=== PATIENT | male | born 1965 | race Caucasian/White ===

== ENCOUNTER 2020-09-23 22:37 | Emergency (ER) | payer MEDICAID ==
[2020-09-23 22:44] VITALS: TEMP 97.6
--- NOTE | 2020-09-23 22:47 | ED ---
Recheck HPI - General Chief Complaint: Recheck/Abnormal Lab/Rx Stated Complaint: High BP Time Seen by Provider: 09/23/20 22:47 Source: patient, RN notes reviewed, old records reviewed Mode of arrival: ambulatory Limitations: no limitations - History of Present Illness Initial Comments: This is a 55-year-old male to the ER for evaluation patient presents today for evaluation regards to elevated blood pressure. Patient has no significant known history of elevated blood pressure is concerned over blood pressure being elevated. Patient's taking it a few times at work and once on outpatient office visit was known to have elevated blood pressure patient does admit to increased stress and anxiety in his life otherwise denies current complaint Headache to this. Complaint: other (Elevated blood pressure) -: days(s) Returns Today for: Called Because of Abnormal Lab/Test (Patient continues to check his blood pressure as an outpatient with continued elevation) Symptoms Since Prior Visit: no new symptoms Context: planned re-check Associated Symptoms: none Treatments Prior to Arrival: other (none) - Related Data Previous Rx's Medication Instructions Recorded Lisinopril [Zestril] 10 mg PO DAILY #30 tab 09/23/20 Allergies Allergy/AdvReac Type Severity Reaction Status Date / Time No Known Allergies Allergy Verified 09/23/20 22:45 Review of Systems ROS Statement: Those systems with pertinent positive or pertinent negative responses have been documented in the HPI. ROS Other: All systems not noted in ROS Statement are negative. Past Medical History Past Medical History: Asthma, Deep Vein Thrombosis (DVT) Additional Past Medical History / Comment(s): hemachromotosis, kidney stones History of Any Multi-Drug Resistant Organisms: None Reported Past Surgical History: Cholecystectomy, Orthopedic Surgery Additional Past Surgical History / Comment(s): ACL reconstruction Past Psychological History: No Psychological Hx Reported, Depression Smoking Status: Light tobacco smoker Past Alcohol Use History: Occasional Past Drug Use History: None Reported General Exam Limitations: no limitations General appearance: alert, in no apparent distress Head exam: Present: atraumatic, normocephalic, normal inspection Eye exam: Present: normal appearance, PERRL, EOMI. Absent: scleral icterus, conjunctival injection, periorbital swelling ENT exam: Present: normal exam, mucous membranes moist Neck exam: Present: normal inspection. Absent: tenderness, meningismus, lymphadenopathy Respiratory exam: Present: normal lung sounds bilaterally. Absent: respiratory distress, wheezes, rales, rhonchi, stridor Cardiovascular Exam: Present: regular rate, normal rhythm, normal heart sounds. Absent: systolic murmur, diastolic murmur, rubs, gallop, clicks GI/Abdominal exam: Present: soft, normal bowel sounds. Absent: distended, tenderness, guarding, rebound, rigid Extremities exam: Present: normal inspection, full ROM, normal capillary refill. Absent: tenderness, pedal edema, joint swelling, calf tenderness Back exam: Present: normal inspection Neurological exam: Present: alert, oriented X3, CN II-XII intact Psychiatric exam: Present: normal affect, normal mood Skin exam: Present: warm, dry, intact, normal color. Absent: rash Course Vital Signs 09/23/20 09/23/20 09/23/20 22:38 22:44 23:44 Temperature 97.6 F Pulse Rate 86 74 77 Respiratory 16 18 18 Rate Blood Pressure 152/99 155/104 O2 Sat by Pulse 95 95 Oximetry 09/24/20 00:05 Temperature Pulse Rate 77 Respiratory 18 Rate Blood Pressure 152/97 O2 Sat by Pulse 95 Oximetry - Reevaluation(s) Reevaluation #1: Medical record is reviewed Patient no distress here in the ER is improved Spoke with patient regarding findings, questions are answered Blood pressure is improved Medical Decision Making - Medical Decision Making 55 male to the ER for evaluation of blood pressure issues. Patient is well- controlled blood pressure now here in the ER and is okay for discharge home with no significant complaint - Lab Data Result diagrams: 09/23/20 23:03 09/23/20 23:03 Lab Results 09/23/20 09/23/20 09/23/20 Range/Units 23:03 23:03 23:03 WBC 9.3 (3.8-10.6) k/uL RBC 5.06 (4.30-5.90) m/uL Hgb 16.5 (13.0-17.5) gm/dL Hct 45.9 (39.0-53.0) % MCV 90.7 (80.0-100.0) fL MCH 32.6 (25.0-35.0) pg MCHC 35.9 (31.0-37.0) g/dL RDW 11.8 (11.5-15.5) % Plt Count 195 (150-450) k/uL MPV 7.0 Neutrophils % 52 % Lymphocytes % 36 % Monocytes % 5 % Eosinophils % 5 % Basophils % 1 % Neutrophils # 4.8 (1.3-7.7) k/uL Lymphocytes # 3.3 (1.0-4.8) k/uL Monocytes # 0.5 (0-1.0) k/uL Eosinophils # 0.5 (0-0.7) k/uL Basophils # 0.1 (0-0.2) k/uL Sodium 139 (137-145) mmol/L Potassium 4.2 (3.5-5.1) mmol/L Chloride 104 (98-107) mmol/L Carbon Dioxide 24 (22-30) mmol/L Anion Gap 11 mmol/L BUN 13 (9-20) mg/dL Creatinine 0.78 (0.66-1.25) mg/dL Est GFR (CKD-EPI)AfAm >90 (>60 ml/min/1.73 sqM) Est GFR (CKD-EPI)NonAf >90 (>60 ml/min/1.73 sqM) Glucose 89 (74-99) mg/dL Calcium 10.2 (8.4-10.2) mg/dL Phosphorus 4.7 H (2.5-4.5) mg/dL Total Bilirubin 0.8 (0.2-1.3) mg/dL AST 47 (17-59) U/L ALT 69 H (4-49) U/L Alkaline Phosphatase 66 (38-126) U/L Creatine Kinase 195 H (55-170) U/L CK-MB (CK-2) 3.2 H (0.0-2.4) ng/mL Troponin I <0.012 (0.000-0.034) ng/mL NT-Pro-B Natriuret Pep pg/mL Total Protein 7.5 (6.3-8.2) g/dL Albumin 4.6 (3.5-5.0) g/dL TSH 4.530 (0.465-4.680) mIU/L 09/23/20 Range/Units 23:04 WBC (3.8-10.6) k/uL RBC (4.30-5.90) m/uL Hgb (13.0-17.5) gm/dL Hct (39.0-53.0) % MCV (80.0-100.0) fL MCH (25.0-35.0) pg MCHC (31.0-37.0) g/dL RDW (11.5-15.5) % Plt Count (150-450) k/uL MPV Neutrophils % % Lymphocytes % % Monocytes % % Eosinophils % % Basophils % % Neutrophils # (1.3-7.7) k/uL Lymphocytes # (1.0-4.8) k/uL Monocytes # (0-1.0) k/uL Eosinophils # (0-0.7) k/uL Basophils # (0-0.2) k/uL Sodium (137-145) mmol/L Potassium (3.5-5.1) mmol/L Chloride (98-107) mmol/L Carbon Dioxide (22-30) mmol/L Anion Gap mmol/L BUN (9-20) mg/dL Creatinine (0.66-1.25) mg/dL Est GFR (CKD-EPI)AfAm (>60 ml/min/1.73 sqM) Est GFR (CKD-EPI)NonAf (>60 ml/min/1.73 sqM) Glucose (74-99) mg/dL Calcium (8.4-10.2) mg/dL Phosphorus (2.5-4.5) mg/dL Total Bilirubin (0.2-1.3) mg/dL AST (17-59) U/L ALT (4-49) U/L Alkaline Phosphatase (38-126) U/L Creatine Kinase (55-170) U/L CK-MB (CK-2) (0.0-2.4) ng/mL Troponin I (0.000-0.034) ng/mL NT-Pro-B Natriuret Pep 26 pg/mL Total Protein (6.3-8.2) g/dL Albumin (3.5-5.0) g/dL TSH (0.465-4.680) mIU/L - EKG Data -: EKG Interpreted by Me (EKG is sinus rhythm 80 CO 150 QRS 88 QTc 433) Disposition Clinical Impression: Hypertension Disposition: HOME SELF-CARE Condition: Good Instructions (If sedation given, give patient instructions): Hypertension (ED) Prescriptions: Lisinopril [Zestril] 10 mg PO DAILY #30 tab Is patient prescribed a controlled substance at d/c from ED?: No Referrals: Pat Carlisle MD [Primary Care Provider] - 1-2 days
[2020-09-23 23:14] LABS: Basophils # (A) 0.1 k/uL (0-0.2); Basophils % (A) 1 %; Eosinophils # (A) 0.5 k/uL (0-0.7); Eosinophils % (A) 5 %; HCT 45.9 % (39.0-53.0); HGB 16.5 gm/dL (13.0-17.5); Lymphocytes # (A) 3.3 k/uL (1.0-4.8); Lymphocytes % (A) 36 %; MCH 32.6 pg (25.0-35.0); MCHC 35.9 g/dL (31.0-37.0); MCV 90.7 fL (80.0-100.0); Monocytes # (A) 0.5 k/uL (0-1.0); Monocytes % (A) 5 %; Neutrophils # (A) 4.8 k/uL (1.3-7.7); Neutrophils % (A) 52 %; Platelet Count 195 k/uL (150-450); RBC 5.06 m/uL (4.30-5.90); RDW 11.8 % (11.5-15.5); WBC 9.3 k/uL (3.8-10.6)
[2020-09-23 23:25] LABS: ALT 69 U/L (4-49); AST 47 U/L (17-59); African American GFR (CKD) >90 (>60 ml/min/1.73 sqM); Albumin 4.6 g/dL (3.5-5.0); Alkaline Phosphatase 66 U/L (38-126); Anion Gap 11 mmol/L; Blood Urea Nitrogen 13 mg/dL (9-20); Calcium 10.2 mg/dL (8.4-10.2); Carbon Dioxide 24 mmol/L (22-30); Chloride 104 mmol/L (98-107); Creatine Kinase 195 U/L (55-170); Glucose 89 mg/dL (74-99); Non-African American GFR(CKD) >90 (>60 ml/min/1.73 sqM); Phosphorus 4.7 mg/dL (2.5-4.5); Potassium 4.2 mmol/L (3.5-5.1); Sodium 139 mmol/L (137-145); Total Bilirubin 0.8 mg/dL (0.2-1.3); Total Protein 7.5 g/dL (6.3-8.2)
[2020-09-23 23:37] LABS: Creatine Kinase MB 3.2 ng/mL (0.0-2.4); Troponin I <0.012 ng/mL (0.000-0.034)
[2020-09-23] MEDS ORDERED: lisinopriL 10 MG TAB PO STA (23:49)
[2020-09-24 00:04] VITALS: RESP 18
[2020-09-24 00:05] VITALS: PULSE 77
[2020-09-24 00:06] VITALS: BP 152/97
== END 2020-09-24 00:19 | disposition home or self-care (01) ==
LOC: EC 22:37
DX: I10 Essential (primary) hypertension (principal); Z63.8 Other specified problems related to primary support group; F41.9 Anxiety disorder, unspecified; Z79.899 Other long term (current) drug therapy; J45.909 Unspecified asthma, uncomplicated; Z86.718 Personal history of other venous thrombosis and embolism; Z87.442 Personal history of urinary calculi; F17.210 Nicotine dependence, cigarettes, uncomplicated; Z90.49 Acquired absence of other specified parts of digestive tract
CPT/HCPCS: 36415; 80053; 82550; 82553; 83880; 84100; 84443; 84484; 85025; 93005; 99284

== ENCOUNTER → 2020-11-20 | Outpatient (CLI) | payer MEDICAID ==
[2020-11-21 00:35] LABS: Albumin 4.6 g/dL (3.80-4.90); Bilirubin, Conjugated 0.2 mg/dL (0.20-0.40); Bilirubin,Unconjugated 0.6 mg/dL; Chol/HDL Ratio 8.64; Globulin 2.3 g/dL (1.6-3.3); Total Bilirubin 0.8 mg/dL (0.2-1.2); Total Protein 6.9 g/dL (6.2-8.2)
== END | disposition home or self-care (01) ==
LOC: LABWHC1 12:46
PROVIDERS: ATTEND Internal Medicine Cardiovascular Disease
DX: E78.2 Mixed hyperlipidemia (principal)
CPT/HCPCS: 36415; 80061; 80076; 83721

== ENCOUNTER → 2023-10-27 | Outpatient (CLI) | payer MEDICAID ==
--- NOTE | 2023-10-27 10:51 | US ---
EXAMINATION TYPE: US kidneys/renal and bladder DATE OF EXAM: 10/27/2023 COMPARISON: NONE CLINICAL INDICATION: Male, 58 years old with history of N20.0 CALCULUS OF KIDNEY; Patient states HX o f stones EXAM MEASUREMENTS: Right Kidney: 11.9 x 7.1 x 5.2 cm Left Kidney: 13.1 x 6.8 x 5.1 cm Limited due to overlying gas and patient body habitus Right Kidney: Few tiny echogenic foci seen within, largest measuring 0.4 x 0.4cm. Left Kidney: Few tiny echogenic foci seen within, largest measuring 0.7 x 0.7cm. Bladder: wnl as best seen Bilateral Jets seen: Right only. There is no evidence for hydronephrosis at this point in time. Small renal calculi seen bilaterally. No masses are identified. The urinary bladder is anechoic. IMPRESSION: Nonobstructing nephrolithiasis.
== END | disposition home or self-care (01) ==
LOC: RADUSWWP 09:58
PROVIDERS: ATTEND Urology
DX: N20.0 Calculus of kidney (principal)
CPT/HCPCS: 76770